=== PATIENT | female | born 1980 | race Caucasian/White ===

== ENCOUNTER 2024-03-20 12:48 | Outpatient (AMB) | payer BC, SELFPAY ==
--- NOTE | 2024-03-20 13:01 | MHC.OFFVIS ---
Vital Signs 03/20/24 13:12 Height 5 ft 2 in Weight 151 lb 8 oz BMI 27.7 BP 122/80 Blood Pressure Location Rt brachial Position Sitting Pulse 85 Pulse Source Pulse Oximeter Pulse Oximetry (%) 97 Oxygen Delivery Method Room Air Intake Visit Reasons: ENP- Dizziness/blurry vision/LVM Intake Note: Patient presents for dizziness and blurry vision. Tingling through shoulder blades, arms and legs. Allergies No Known Allergies Allergy (Verified 03/20/24 13:07) Medication List - Last Reconciled 03/20/24 by RAVI Gonzalez sertraline (Zoloft) 100 mg PO DAILY valsartan 160 mg PO DAILY HPI Comments Details: Right-handed 43-yr-old female presents for neurological evaluation of: paresthesias. Pt reports, 2yrs ago 04/22/22, she had a witnessed seizure-like episode lasting 1.5 minutes, while a passenger car. She states she was talking, when all of a sudden she stopped talking, clenched her jaw, and did bite her tongue, and when she came to felt brief confusion, lightheaded, and maybe fatigued. She states she was being driven home from work, was going to grab dinner. Possibly had increased stress r/t life stresses. She never had this evaluated d/t life commitments. Then, she started noticing episodes of BUE, predominantly on the right, right hand posturing/locking w/ thumb adduction, hand posturing/stiffness, which would last 2-3 minutes. The episode comes on suddenly. Has no warning of these episodes. Denies any associated spacing out. This has happened at work but also at home. Prior to this episode, she would have electrical vega or creepy crawling sensation at night. Can have back stiffness at night. Denies nocturnal arm or leg cramps. This has improved since she was started on Vit D supplement in Oct 2023. She had RLS s/s in the past when her children were younger. Then in Oct 2023, she had an acute episode of shocking and tingling sensation from her upper mid-back into bilateral posterior shoulders and up the neck into the lower occipital region. She was at work, 911 was called, and brought to [facility]. She was seen by neuro and referred back to PCP. 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 Patient endorses: BUE numbness and tingling. Sometimes tingling in her feet. Occasional arm or leg jerk when laying down. Generalized weakness. Has blurry, floating vision, some overlapping diplopia upon distance. Has some bruxism. [employer] [facility] [employer] work- but has not been able to complete it yet- d/t time, family obligations. Does not use a mouthguard. Tension headaches- in the occipital region- 5/10 dull pressure pain, photophobia, phonophobia, hyperacusia- especially at night, mild nausea. Occurs daily, near constant. Lasts 4 hrs w/o tx, 2 hrs w/ Tylenol. Neck and back is always tight and dull ache. No usual shooting pain. Has dizziness- lightheadedness or 0ff-balance- comes and goes. Fatigue, snoring, sleep difficulties. She is trying to stretch. Trying to drink well- takes 4-5 16 oz water bottles per day, plus a lg coffee (24oz) in the am, may take decaf tea in the evening. Generally avoids salt- salt causes increased voiding and high BP, She has had recent brain MRI- per pt- showed white matter changes. PFSH Family History (Updated 03/20/24 @ 13:10 by Armida Carrillo CMA) Father Hypertension History of heart attack Mother Hypertension Social History (Updated 03/20/24 @ 13:12 by Armida Carrillo CMA) Household Members: Children Housing: Apartment Alcohol intake: former Patient Tobacco Use Status: Current someday Tobacco user Tobacco use type: Cigarette Cigarette Packs Per Day: 0.5 Years Smoked: 15 Review of Systems Const All systems reviewed & are unremarkable except as noted in HPI and below Physical Exam Vital Signs: Last Vital Signs Pulse 85 03/20/24 13:12 BP 122/80 03/20/24 13:12 Pulse Ox 97 03/20/24 13:12 Oxygen Delivery Method Room Air 03/20/24 13:12 BMI result Body Mass Index 27.7 Const General: cooperative and no acute distress Orientation/consciousness: patient oriented x3 HEENT Head: Yes normocephalic Resp Effort & Inspection: normal respiratory effort and able to speak in complete sentences Neuro Other: Right TMJ clicking w/ mild jaw displacement. Lower frontal teeth marked wearing Bilateral posterior cervical tightness. Cervical ROM: full Left Spurling: normal Right Spurling: normal. General: patient oriented x3, CN's II-XI intact bilaterally and deep tendon reflexes 2+ bilaterally Gait exam (Neuro): Normal gait present Motor exam (neuro): 5/5 motor strength present throughout Psych Appearance: grossly normal Mental Status: mental status grossly normal Speech and movement: Normal speech and movement present Affect: normal affect Attitude: cooperative Thought process: Normal thought process present Thought content: Normal thought content present Insight: Good insight present (Psych) Assessment & Plan Assessment & Plan (1) Paresthesias: Code(s): R20.2 - Paresthesia of skin Category: Medical (2) Muscle cramping: Code(s): R25.2 - Cramp and spasm Category: Medical (3) Convulsion: Code(s): R56.9 - Unspecified convulsions Category: Medical (4) Cervicalgia: Code(s): M54.2 - Cervicalgia Category: Medical (5) Low back pain: Code(s): M54.50 - Low back pain, unspecified Category: Medical (6) Sleep difficulties: Code(s): G47.9 - Sleep disorder, unspecified Category: Medical (7) Fatigue: Code(s): R53.83 - Other fatigue Category: Medical (8) Snoring: Code(s): R06.83 - Snoring Category: Medical (9) Chronic migraine without aura: Comment: Possible cervicogenic or TMG d/o. Code(s): G43.709 - Chronic migraine without aura, not intractable, without status migrainosus Category: Medical Plan Will request recent brain MRI report from [place]. Pt advised to undergo: EEG to assess for epileptic activity. XR c-spine and L-spine. Start Vitamin B2 and Magnesium- for migraine headaches and cramps. Cyclobenzaprine- for muscle spasm and sleep. Try an OTC mouth guard. F/u w/ dentist when able. Future considerations: BUE EMG/NCS. Pt seen in c/w Dr Nia Juárez. F/u upon review of above and in 3 months in clinic. Orders: Orders RT home sleep study Today G47.9 - Sleep disorder, unspecified, R06.83 - Snoring, R53.83 - Other fatigue EEG electroencephalogram Today R25.2 - Cramp and spasm, R56.9 - Unspecified convulsions XR cervical spine w flex/ext Today M54.2 - Cervicalgia XR lumbar spine 4V min Today M54.50 - Low back pain, unspecified Medications: New riboflavin (vitamin B2) 400 mg PO DAILY 30 tabs 6RF 30 days magnesium oxide may hold for loose stools 400 mg PO BEDTIME 30 tabs 6RF 30 days cyclobenzaprine 5 mg PO BEDTIME PRN 30 tabs 3RF muscle spasm 30 days Coding Level of Care Code New Pt Level 4 (03819) Diagnoses Paresthesias R20.2 Muscle cramping R25.2 Convulsion R56.9 Cervicalgia M54.2 Low back pain M54.50 Sleep difficulties G47.9 Fatigue R53.83 Snoring R06.83 Chronic migraine without aura G43.709
[2024-03-20 13:12] VITALS: BP 122/80; PULSE 85; O2SAT 97; BMI 27.7
== END 2024-03-20 14:14 | disposition home or self-care (01) ==
PROVIDERS: PCP Internal Medicine; Visit Provider Nurse Practitioner Family
DX: R20.2 Paresthesia of skin (principal); R25.2 Cramp and spasm; R56.9 Unspecified convulsions; M54.2 Cervicalgia; M54.50 Low back pain, unspecified; G47.9 Sleep disorder, unspecified; R53.83 Other fatigue; R06.83 Snoring; G43.709 Chronic migraine without aura, not intractable, without status migrainosus
CPT/HCPCS: 99204

== ENCOUNTER → 2024-03-20 12:48 | Outpatient (BNVA) | payer BC, SELFPAY | PROVIDERS: PCP Internal Medicine; Visit Provider Nurse Practitioner Family ==

== ENCOUNTER 2024-07-14 07:45 | Outpatient (AMB) | payer BC, SELFPAY ==
--- NOTE | 2024-07-14 07:45 | MHC.OFFVIS ---
Intake Visit Reasons: 3 month F/U Intake Note: Patient presents for follow up. Allergies No Known Allergies Allergy (Verified 07/14/24 07:45) Medication List - Last Reconciled 07/14/24 by RAVI Gonzalez cyclobenzaprine 5 mg PO BEDTIME PRN 30 days magnesium oxide 400 mg PO BEDTIME 30 days riboflavin (vitamin B2) 400 mg PO DAILY 30 days sertraline (Zoloft) 100 mg PO DAILY valsartan 160 mg PO DAILY HPI Comments Details: 43-yr-old female presents for f/u visit. Pt denies any significant interval medical changes. Pt reports she is doing a little better. She has not done any of the ordered testing d/t work schedule She tried the cyclobenzaprine- was not very helpful. She has tried an OTC mouthguards- has not noticed much benefit. She is trying to stretch and do some yoga stretches- helps some. She is most bothered by jaw tightness, it is harder to speak clearly. She still feels fatigued. Continues to have some episodes of dizziness- lightheadedness or 0ff-balance- comes and goes. Continues to have fatigue, snoring, sleep difficulties. Continues to have dull left neck and upper body pain and tightness. Continues to have intermittent shocking pain in the hands and body- this happens when she is laying down. Continues to have headaches- in the occipital region- 5/10 dull pressure pain, photophobia, phonophobia, hyperacusia- especially at night, mild nausea. Now occurs 2-3 x's per week. Lasts 4 hrs w/o tx, 2 hrs w/ Tylenol. Now has just had rare arm or leg jerk when laying down She has not had anymore hand clenching episodes. [facility] Family History Father Hypertension History of heart attack Mother Hypertension Social History (Updated 03/20/24 @ 13:12 by LORI Santacruz) Household Members: Children Housing: Apartment Alcohol intake: former Patient Tobacco Use Status: Current someday Tobacco user Tobacco use type: Cigarette Cigarette Packs Per Day: 0.5 Years Smoked: 15 Physical Exam Const General: cooperative and no acute distress Orientation/consciousness: patient oriented x3 Resp Effort & Inspection: normal respiratory effort and able to speak in complete sentences Neuro General: patient oriented x3 Cranial nerves: Yes CN's II-XII intact bilaterally Cognition (Neuro): normal cognition Psych Appearance: grossly normal Mental Status: mental status grossly normal Speech and movement: Normal speech and movement present Affect: normal affect Attitude: cooperative Telehealth Telehealth Telehealth Platform: [employer] Location of provider rendering services: practice address Location of patient: address on file Patient Identification confirmed using: Name, : Yes Telehealth method: video Patient verbally consented to treatment: Yes Patient verbally consented to billing insurance company: Yes Patient informed of any privacy concerns related to visit: Yes Minutes spent on Phone/Video with Pt.: 22 Assessment & Plan Assessment & Plan (1) Muscle cramping: Code(s): R25.2 - Cramp and spasm Category: Medical (2) Cervicalgia: Code(s): M54.2 - Cervicalgia Category: Medical (3) Paresthesias: Code(s): R20.2 - Paresthesia of skin Category: Medical (4) Chronic migraine without aura: Comment: Possible cervicogenic or TMG d/o. Code(s): G43.709 - Chronic migraine without aura, not intractable, without status migrainosus Category: Medical (5) Sleep difficulties: Code(s): G47.9 - Sleep disorder, unspecified Category: Medical (6) Fatigue: Code(s): R53.83 - Other fatigue Category: Medical (7) Snoring: Code(s): R06.83 - Snoring Category: Medical (8) Convulsion: Code(s): R56.9 - Unspecified convulsions Category: Medical Plan P{t did have eye exam- rec'd glasses. Pt again advised to undergo: EEG to assess for epileptic activity. XR c-spine and L-spine. HST to assess for sleep apnea- Will send all orders to [facility] as this is closer to pt. Continue Vitamin B2 and Magnesium- for migraine headaches and cramps. Increase Cyclobenzaprine from 5mg qhs prn to 10mg bid prn for muscle spasm. Start Gabapentin 100-300mg qhs for cramps, sleep, headaches. Trial Sumatriptan 100mg tab, 1/2 - 1 tab (50-100mg) at onset of headache, may repeat in 2 hours. Max of 2 tabs (200mg) per 24 hours. May adjunct with OTC Tylenol 650-1000mg q 4-6 hours. Continue OTC mouth guard. F/u w/ dentist when able. Continue stretching, yoga type exercises. Future considerations: BUE EMG/NCS, PT. Medications: New gabapentin 100 - 300 mg (1 - 3 x 100 mg) PO BEDTIME 30 days 90 caps 3RF cyclobenzaprine 10 mg PO BID 30 days PRN 60 tabs 1RF muscle spasm sumatriptan succinate (0.5 - 1 x 100 mg) 50 - 100 mg orally at onset of headache, may repeat in 2 hrs PRN; max 2 tabs per day or 4 tabs/week (may take with Tylenol)) 30 days 12 tabs 6RF migraine headache Refilled magnesium oxide may hold for loose stools 400 mg PO BEDTIME 30 days 30 tabs 6RF riboflavin (vitamin B2) 400 mg PO DAILY 30 days 30 tabs 6RF Discontinued cyclobenzaprine Discontinued Reason: Doctor's Order 5 mg PO BEDTIME 30 days PRN 30 tabs 3RF muscle spasm Coding Level of Care Code Tele Est Pt Level 4 (36244) Diagnoses Muscle cramping R25.2 Cervicalgia M54.2 Paresthesias R20.2 Chronic migraine without aura G43.709 Sleep difficulties G47.9 Fatigue R53.83 Snoring R06.83 Convulsion R56.9
== END 2024-07-14 08:53 | disposition home or self-care (01) ==
LOC: HO.HSMS 07:45
PROVIDERS: PCP Internal Medicine; Visit Provider Nurse Practitioner Family
DX: R25.2 Cramp and spasm (principal); M54.2 Cervicalgia; R20.2 Paresthesia of skin; G43.709 Chronic migraine without aura, not intractable, without status migrainosus; G47.9 Sleep disorder, unspecified; R53.83 Other fatigue; R06.83 Snoring; R56.9 Unspecified convulsions
CPT/HCPCS: 99214

== ENCOUNTER → 2024-07-14 07:45 | Outpatient (BNVA) | payer BC, SELFPAY | PROVIDERS: PCP Internal Medicine; Visit Provider Nurse Practitioner Family ==

== ENCOUNTER → 2025-01-23 08:35 | Outpatient (AMB) | payer BC, SELFPAY ==
--- NOTE | 2025-01-23 08:35 | A.OFFVIS_ITS ---
Intake Visit Reasons: Follow Up Intake Note: Patient presents follow up Migraine Medication Allergies No Known Allergies Allergy (Verified 01/23/25 08:36) Medication List - Last Reconciled 01/23/25 by RAVI Gonzalez cyclobenzaprine 10 mg PO BID PRN 30 days gabapentin 100 - 300 mg (1 - 3 x 100 mg) PO BEDTIME 30 days magnesium oxide 400 mg PO BEDTIME 30 days riboflavin (vitamin B2) 400 mg PO DAILY 30 days sertraline (Zoloft) 100 mg PO DAILY sumatriptan succinate 50 - 100 mg orally at onset of headache, may repeat in 2 hrs PRN; max 2 tabs per day or 4 tabs/week (may take with Tylenol)) 30 days valsartan 160 mg PO DAILY HPI Comments Details: 44-yr-old female presents for f/u visit for chronic migraine. Pt has been having new bladder symptoms since September. She reports bladder fullness, and need to void at least 5 times a night. She feels like her bladder will explode, and now voiding at least 5 times a night- and voiding only small amounts- almost like a tinkle. She had not had her menstrual cycle in 14 months, then had a heavy cycle x's 4 days in Nov and then another cycle started 2 dyas ago. Denies any typical menstrual s/s- no cramps. She also endorses lower abdominal aching (not a/w the vaginal bleeding), fatigue, weight gain. Denies night sweats, anorexia, fever/chills. She has not discussed this with her PCP. 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 Interval EEG did not show any epileptic. Has not had HST. She is having a dull low grade headache migraine- all over the head- like a halo- and into the neck. Occurs 3-4 times per week, especially at work. She is using the Gabapentin- is helping to reduce generalized body pains. Using cyclobenzaprine at night- not every night- helps some. She has not tried Sumatriptan yet- was waiting to try it as a last resort. 07/14/2024 HPI: Pt reports she is doing a little better. She has not done any of the ordered testing d/t work schedule She tried the cyclobenzaprine- was not very helpful. She has tried an OTC mouthguards- has not noticed much benefit. She is trying to stretch and do some yoga stretches- helps some. She is most bothered by jaw tightness, it is harder to speak clearly. She still feels fatigued. Continues to have some episodes of dizziness- lightheadedness or 0ff-balance- comes and goes. Continues to have fatigue, snoring, sleep difficulties. Continues to have dull left neck and upper body pain and tightness. Continues to have intermittent shocking pain in the hands and body- this happens when she is laying down. Continues to have headaches- in the occipital region- 5/10 dull pressure pain, photophobia, phonophobia, hyperacusia- especially at night, mild nausea. Now occurs 2-3 x's per week. Lasts 4 hrs w/o tx, 2 hrs w/ Tylenol. Now has just had rare arm or leg jerk when laying down She has not had anymore hand clenching episodes. PFSH Family History Father Hypertension History of heart attack Mother Hypertension Social History Household Members: Children Housing: Apartment Alcohol intake: former Patient Tobacco Use Status: Current someday Tobacco user Tobacco use type: Cigarette Cigarette Packs Per Day: 0.5 Years Smoked: 15 Physical Exam Const General: cooperative and no acute distress Orientation/consciousness: patient oriented x3 Resp Effort & Inspection: normal respiratory effort and able to speak in complete sentences Neuro General: patient oriented x3 Cognition (Neuro): normal cognition Psych Appearance: grossly normal Mental Status: mental status grossly normal Speech and movement: Normal speech and movement present Affect: normal affect Attitude: cooperative Telehealth Telehealth Telehealth Platform: Telephone Location of provider rendering services: practice address Location of patient: address on file Patient Identification confirmed using: Name, : Yes Telehealth method: video Patient verbally consented to treatment: Yes Patient verbally consented to billing insurance company: Yes Patient informed of any privacy concerns related to visit: Yes Minutes spent on Phone/Video with Pt.: 23 Assessment & Plan Assessment & Plan (1) Chronic migraine without aura: Comment: Possible cervicogenic or TMG d/o. Code(s): G43.709 - Chronic migraine without aura, not intractable, without status migrainosus Category: Medical (2) Nocturia: Code(s): R35.1 - Nocturia Category: Medical (3) Post-menopausal bleeding: Code(s): N95.0 - Postmenopausal bleeding Category: Medical (4) Altered urinary elimination pattern: Code(s): R39.198 - Other difficulties with micturition Category: Medical (5) Muscle cramping: Code(s): R25.2 - Cramp and spasm Category: Medical (6) Cervicalgia: Code(s): M54.2 - Cervicalgia Category: Medical (7) Paresthesias: Code(s): R20.2 - Paresthesia of skin Category: Medical (8) Sleep difficulties: Code(s): G47.9 - Sleep disorder, unspecified Category: Medical (9) Fatigue: Code(s): R53.83 - Other fatigue Category: Medical (10) Snoring: Code(s): R06.83 - Snoring Category: Medical (11) Convulsion: Code(s): R56.9 - Unspecified convulsions Category: Medical Plan In regards to patient's reports of sleep difficulties secondary to nocturia and symptoms suggestive of urinary retention, and recent onset of post menopausal vaginal bleeding, I have advised her she will need to follow-up with her PCP and header setup operator. I advised her that the symptoms raise concern for a gyneco-urological condition, and that postmenopausal bleeding should be promptly assessed for secondary etiologies. Patient advised to call her header setup operator office today to make an appointment. We will also take the liberty of requesting a urology consult. However reviewed yellow and red flag signs which would warrant more urgent or ER evaluation. Patient verbalized understanding. Reviewed EEG- no evidence epileptic activity. XR c-spine and L-spine- when able HST to assess for sleep apnea-when able Orders to [facility] as this is closer to pt. Continue Vitamin B2 and Magnesium- for migraine headaches and cramps. Continue Cyclobenzaprine 10mg bid prn for muscle spasm. Continue Gabapentin 100-300mg qhs for cramps, sleep, headaches. Again trial Sumatriptan 100mg tab, 1/2 - 1 tab (50-100mg) at onset of headache, may repeat in 2 hours. Max of 2 tabs (200mg) per 24 hours. May adjunct with OTC Tylenol 650-1000mg q 4-6 hours. Continue OTC mouth guard. F/u w/ dentist when able. Continue stretching, yoga type exercises. Future considerations: BUE EMG/NCS, PT. Orders: Referrals Urology Referral N95.0 - Postmenopausal bleeding, R35.1 - Nocturia, R39.198 - Other difficulties with micturition Coding Level of Care Code Tele Est Pt Level 4 (53686) Diagnoses Chronic migraine without aura G43.709 Nocturia R35.1 Post-menopausal bleeding N95.0 Altered urinary elimination pattern R39.198 Muscle cramping R25.2 Cervicalgia M54.2 Paresthesias R20.2 Sleep difficulties G47.9 Fatigue R53.83 Snoring R06.83 Convulsion R56.9
--- OUTSIDE RECORDS SUMMARY | 2025-01-23 09:03 | XMS_ITS | Clinical Summary ---
Author Organization [facility] Address [address] [place] [address] Care Team Providers Care Inspector [employer] Name Role Phone Ambika Perla MD Primary Care Prov ider Allergies Active Allergy Reactions Criticality Noted Date Comments Hydrocodone-Acetaminophen Nausea And Vomiting 1 12/14/2009 Lisinopril Cough 07/10/2019 Medications valsartan (DIOVAN) 160 mg tablet TAKE 1 TABLET BY MOUTH EVERY DAY 90 tablet 10/16/2024 Active valsartan (DIOVAN) 160 mg tablet Take 1 tablet (160 mg total) by mouth 1 (one) time each day. 11/30/2023 Active amLODIPine (NORVASC) 10 mg tablet Take 1 Tablet by mouth daily for 180 days. 11/30/2023 Active chlorthalidone (HYGROTON) 25 mg tablet Take 1 tablet (25 mg total) by mouth 1 (one) time each day. 11/30/2023 Active hydrOXYzine pamoate (VISTARIL) 50 mg capsule Take 1 Capsule by mouth 3 times daily as needed for Anxiety. 12/18/2023 Active sertraline (ZOLOFT) 50 mg tablet Take 1 tablet (50 mg total) by mouth at bedtime. 07/02/2024 Active ergocalciferol (VITAMIN D-2) 1,250 mcg (50,000 unit) capsule Take 1 Capsule by mouth once a week. For 12 weeks 11/30/2023 Active Active Problems Problem Noted Date Diagnosed Date Anxiety and depression 11/21/2024 HTN (hypertension) 09/17/2017 History of alcohol abuse 02/15/2016 Immunizations Name Administration Dates Next Due Tdap Tetanus diptheria acell ular pertussis (Boostrix; Adacel) 7yo and older 05/25/2023 Surgical History Surgery Date Site/Laterality Comments OTHER SURGICAL HISTORY PROCEDURE: DENIES PREVIOUS SURGERY Medical History Medical History Date Comments Anxiety and depression DX:Anxiet y and depression History of alcohol abuse 02/15/2016 DX:Hist ory of alcohol abuse Tobacco use DX:Tobacco use History of gestational diabetes 12/05/2007 DX:History of gestational diabetes Homelessness 04/17/2019 DX:Homelessness HTN (hypertension) 09/17/2017 DX:HTN (hyper tension) Hypertension DX:Hypertension Seizures (CMS/HCC) DX:Seizures ( HCC) Seizure (CMS/HCC) 04/22/2022 DX:Seizure (HC C) Family History Medical History Relation Name Comments Heart attack Father 5 vessel cabg a ge 50 Hyperlipidemia Father No Known Problems Grandparent paternal, Heart attack Maternal Grandfather No Known Problems Mother Relation Name Status Comments Father Alive Grandparent Alive Maternal Grandfather (Age 75) Maternal Grandmother (Age 85) Mother Alive Social History Tobacco Use Types Packs/Day Years Used Date Smoking Tobacco: Every Day Cigarettes Alcohol Use Standard Drinks/Week Comments Yes 0 (1 standard drink = 0.6 oz pur e alcohol) Comments Unknown Sex and Gender Information Value Date Recorded Sex Assigned at Not on file Legal Sex Female 7:50 AM EST Gender Identity Not on file Sexual Orientation Not on file Obstetrics History Last Filed Vital Signs Vital Sign Reading Time Taken Comments Blood Pressure 110/60 12/18/2023 12:38 PM EST Pulse 93 12/18/2023 10:42 AM EST Temperature - - Respiratory Rate - - Oxygen Saturation - - Inhaled Oxygen Concentration - - Weight 70.7 kg (155 lb 12.8 oz) 024 10:42 AM EST Height 157.5 cm (5' 2 ) 12/18/2023 10:4 2 AM EST Body Mass Index 28.5 12/18/2023 10:42 AM EST Plan of Treatment Health Maintenance Due Date Last Done Comments Breast Cancer Screening 1979 Hepatitis B Vaccines (1 of 3 - 19+ 3-dose series) 1998 Pneumococcal Vaccine: Pediatrics (0 to 5 Years) and At-Risk Patients (6 to 64 Years) (1 of 2 - PCV) 1998 Cervical Cancer Screening: P ap Smear 02/17/2020 02/16/2017, 02/16/2017 Colorectal Cancer Screening: Colonoscopy 09/24/2022 HIV Screening 09/24/2022 Hepatitis C Screening 09/24/2022 Social Influencers of Health Screening 09/24/2022 COVID-19 Vaccine (1 - 2023-2 5 season) 2024 Influenza Vaccine (#1) 2024 Hypertension/CHF/CAD Annual BMP Blood Test 12/18/2024 12/18/2023 Depression Screening 07/02/2025 07/02/2024 Cholesterol Screening (Lipid Panel) 05/25/2028 05/25/2023 DTaP,Tdap,and Td Vaccines (2 - Td or Tdap) 05/25/2033 05/25/2023 HIB Vaccines Aged Out No longer eligi ble based on patient's age to complete this topic HPV Vaccines Aged Out No longer eligi ble based on patient's age to complete this topic Hepatitis A Vaccines Aged Out No long er eligible based on patient's age to complete this topic IPV Vaccines Aged Out No longer eligi ble based on patient's age to complete this topic MMR Vaccines Aged Out No longer eligi ble based on patient's age to complete this topic Meningococcal ACWY Vaccine Aged Out N o longer eligible based on patient's age to complete this topic Meningococcal B Vacine Aged Out No lo nger eligible based on patient's age to complete this topic RSV Immunization Patients Under 20 months Aged Out No longer eligible b ased on patient's age to complete this topic Varicella Vaccines Aged Out No longer eligible based on patient's age to complete this topic Procedures Procedure Name Priority Date/Time Associated Diagnosis Comments DEPRESSION SCREENING Routine 07/02/2024 ANNUAL BMP BLOOD TEST Routine 12/18/2023 LIPID PANEL Routine 05/25/2023 HPV Routine 02/16/2017 from Last 3 Months or Most Recently Relevant to Health Maintenance Results * Depression Screening (07/02/2024) Depression Screening abstracted Historical Provider HEALTH MAINTENANCE Final Result * Annual BMP Blood Test (12/18/2023) [facility] Annual BMP Blood Test abstracted Result [facility] Provider HEALTH MAINTENANCE Final Result * (ABNORMAL) Lipid panel (05/25/2023) [facility] LDL/HDL Ratio 2 0 - 4 Triglycerides 61 0 - 150 mg/dL Cholesterol 199 0 - 200 mg/dL HDL 82 >=40 mg/dL LDL Cholesterol 105(A) 0 - 100 mg/dL Blood Venous blood specimen / Unknown Result [facility] Provider LAB BLOOD ORDERABLES Juanita l Result * Cervical Cancer Screening: HPV (02/16/2017) [facility] Cervical Cancer Screening: HPV negative, abstracted Result [facility] Provider HEALTH MAINTENANCE Final Result from Last 3 Months or Most Recently Relevant to Health Maintenance Care Teams Inspector [employer] Relationship Specialty Start Date End Date Ambika Perla MD PCP - General Internal Medicine 01/05/14
== END ==
LOC: HO.HSMS 08:35
PROVIDERS: PCP Internal Medicine; Visit Provider Nurse Practitioner Family
DX: G43.709 Chronic migraine without aura, not intractable, without status migrainosus (principal); R35.1 Nocturia; N95.0 Postmenopausal bleeding; R39.198 Other difficulties with micturition; R25.2 Cramp and spasm; M54.2 Cervicalgia; R20.2 Paresthesia of skin; G47.9 Sleep disorder, unspecified; R53.83 Other fatigue; R06.83 Snoring; R56.9 Unspecified convulsions
CPT/HCPCS: 99214